=== PATIENT | female | born 1950 | race Caucasian/White ===

== ENCOUNTER → 2024-01-13 12:56 | Outpatient (REF) | payer MEDICARE, OTHER, SELFPAY | LOC: HWRAD 12:56 | PROVIDERS: ATTENDING PHYSICIAN Podiatrist Foot & Ankle Surgery; FAMILY PHYSICIAN Internal Medicine | DX: M19.071 Primary osteoarthritis, right ankle and foot (principal) | CPT/HCPCS: 73610 ==

== ENCOUNTER → 2024-08-01 15:49 | Outpatient (REF) | payer MEDICARE, BC, SELFPAY | LOC: RAD 15:49 | PROVIDERS: ATTENDING PHYSICIAN Specialist; FAMILY PHYSICIAN Internal Medicine | DX: N20.0 Calculus of kidney (principal) | CPT/HCPCS: 76775 ==

== ENCOUNTER 2024-09-26 21:12 | Emergency (ER) | payer MEDICARE, BC, SELFPAY ==
[2024-09-26 21:14] VITALS: BP 137/79
[2024-09-26 21:45] LABS: % Basophils 0.4 % (0-2); % Immature Granulocytes 0.2 % (0-0.5); % Lymphocytes 28.2 % (20.5-51.1); % Monocytes 8.5 % (1.7-9.3); % Neutrophils 59.7 % (42.2-75.2); Absolute Eosinophils 0.2 10^3/uL (0-0.7); Absolute Lymphocytes 1.4 10^3/uL (1.2-3.4); Absolute Monocytes 0.4 10^3/uL (0.1-0.6); Hematocrit 35.9 % (37.0-47.0); Hemoglobin 12.4 g/dL (12.0-16.0); Mean Corp Hgb Conc. 34.5 g/dL (33.0-37.0); Mean Corpuscular Hgb 32.9 pg (27.0-31.0); Mean Corpuscular Volume 95.2 fL (81.0-99.0); Mean Platelet Volume 8.5 fL (7.4-10.4); Nucleated Red Blood Cells % 0 %; Platelet Count 225 10^3/uL (130-400); Red Blood Cell Count 3.77 10^6/uL (4.20-5.40); Red Cell Dist. Width 12.5 % (11.5-14.5); Urine Albumin Negative (Neg - Trace); Urine Bilirubin Negative (Negative); Urine Character Clear (Clear); Urine Color Yellow; Urine Glucose Negative (Negative); Urine Ketone Negative (Negative); Urine Leukocyte Trace (Negative); Urine Nitrite Negative (Negative); Urine Occult Blood Negative (Negative); Urine Urobilinogen 1+ (Neg - 1+)
[2024-09-26 21:50] LABS: Urine Bacteria Many (Negative); Urine Red Blood Cell 0-2 /HPF (0-2)
[2024-09-26 21:51] LABS: Urine Amorphous Seen
[2024-09-26 22:03] LABS: Blood Urea Nitrogen 31 mg/dl (7-17); Carbon Dioxide 33 mmol/L (22-30); Chloride 96 mmol/L (98-107); Glucose 121 mg/dl (70-99); Sodium 137 mmol/L (135-145); eGFR > 60.00
[2024-09-26 23:00] VITALS: BMI 20.4
--- NOTE | 2024-09-26 23:44 | ED.GENMED ---
History of Present Illness
<Graciela Hsu MAP MOUNTER - Last Filed: 09/26/24 23:48>
General
Chief Complaint: Flank Pain
Source: patient
Exam Limitations: none
Time Seen by Provider: 09/26/24 22:29
Nursing documentation reviewed up to this point in time: agreed with
History of Present Illness
History of Present Illness:
Patient to eD wtih complaint of left flank pain. Symptoms started yesterday and continue to worsen. History of kidney stones, uncertain that this is cause of her pain tonight. Denies fever/chills, n/v/d. Pain becomes wworse with movement.
BRought to ED by spouse for eval.
Past History
<Graciela Hsu MAP MOUNTER - Last Filed: 09/26/24 23:48>
Past History
ED Past Medical History: None
Review of Systems
<Graciela Hsu MAP MOUNTER - Last Filed: 09/26/24 23:48>
Review of Systems
Allergies reviewed?: Yes
All Other Systems: ROS reviewed and negative except as documented in HPI and ROS
Constitutional: Reports no symptoms
EENT: Reports no symptoms
Respiratory: Reports no symptoms
Cardiac: Reports no symptoms
ABD/GI: Reports no symptoms
: Reports flank pain
Musculoskeletal: Reports no symptoms
Skin: Reports no symptoms
Neurological: Reports no symptoms
Psychiatric: Reports no symptoms
Phy Exam
<Vic Douglas DO - Last Filed: 09/27/24 02:16>
Physical Exam
Physical Exam:
Physical Exam
General: no apparent distress, not acutely ill
Neck: No jaundice
Heart: s1/s2 regular rate and rhythm, no murmur. equal radial pulses.
Lungs: no acute respiratory distress. clear bilaterally
Abdomen: Mild tenderness in the left flank
Neuro: alert and oriented. no focal neurological deficits
Skin: no rash
Psychiatric: well kept. interactive and cooperative
Extremities: no edema.
Course
<Graciela Hsu MAP MOUNTER - Last Filed: 09/26/24 23:48>
Orders/Labs/Results
Orders:
Orders
09/26/24 21:35
Basic Metabolic Panel Urgent
Complete Blood Count/With Diff Urgent
Urinalysis Reflex To Culture Urgent
Date Specimen was Collected: 09/26/24
Time Specimen was Collected: 21:21
Urine Microscopic Reflex Cult Urgent
Urine Culture Urgent
VANDANA Source: U
Specimen Description:
Date Specimen was Collected: 09/26/24
Time Specimen was Collected: 21:21
09/26/24 22:41
CT Abd/pel Without Iv Or Oral Urgent
Comment:
Reason For Exam: left flank pain
09/27/24 00:20
Ibuprofen [Motrin] 600 mg PO NOW STA
Abnormal Lab Results
09/26/24
21:35
RBC 3.77 L 10^6/uL
(4.20-5.40)
Hct 35.9 L %
(37.0-47.0)
MCH 32.9 H pg
(27.0-31.0)
Chloride 96 L mmol/L
(98-107)
Carbon Dioxide 33 H mmol/L
(22-30)
BUN 31 H mg/dl
(7-17)
Glucose 121 H mg/dl
(70-99)
Leukocyte Esterase Rfl Trace A
(Negative)
Urine Bacteria (Reflex) Many A
(Negative)
09/26/24 21:35
09/26/24 21:35
Vital Signs
Initial and Last Documented VS:
Initial Vital Signs
Temp Pulse Resp BP Pulse Ox
97.6 F 85 18 137/79 97
09/26/24 21:14 09/26/24 21:14 09/26/24 21:14 09/26/24 21:14 09/26/24 21:14
Last Documented Vital Signs
Temp Pulse Resp BP Pulse Ox
97.6 F 73 18 127/68 98
09/26/24 21:14 09/27/24 00:08 09/27/24 00:08 09/27/24 00:08 09/27/24 00:08
<Vic Douglas, DO - Last Filed: 09/27/24 02:16>
Orders/Labs/Results
Orders:
Orders
09/26/24 21:35
Basic Metabolic Panel Urgent
Complete Blood Count/With Diff Urgent
Urinalysis Reflex To Culture Urgent
Date Specimen was Collected: 09/26/24
Time Specimen was Collected: 21:21
Urine Microscopic Reflex Cult Urgent
Urine Culture Urgent
VANDANA Source: U
Specimen Description:
Date Specimen was Collected: 09/26/24
Time Specimen was Collected: 21:21
09/26/24 22:41
CT Abd/pel Without Iv Or Oral Urgent
Comment:
Reason For Exam: left flank pain
09/27/24 00:20
Ibuprofen [Motrin] 600 mg PO NOW STA
Abnormal Lab Results
09/26/24
21:35
RBC 3.77 L 10^6/uL
(4.20-5.40)
Hct 35.9 L %
(37.0-47.0)
MCH 32.9 H pg
(27.0-31.0)
Chloride 96 L mmol/L
(98-107)
Carbon Dioxide 33 H mmol/L
(22-30)
BUN 31 H mg/dl
(7-17)
Glucose 121 H mg/dl
(70-99)
Leukocyte Esterase Rfl Trace A
(Negative)
Urine Bacteria (Reflex) Many A
(Negative)
09/26/24 21:35
09/26/24 21:35
Vital Signs
Initial and Last Documented VS:
Initial Vital Signs
Temp Pulse Resp BP Pulse Ox
97.6 F 85 18 137/79 97
09/26/24 21:14 09/26/24 21:14 09/26/24 21:14 09/26/24 21:14 09/26/24 21:14
Last Documented Vital Signs
Temp Pulse Resp BP Pulse Ox
97.6 F 73 18 127/68 98
09/26/24 21:14 09/27/24 00:08 09/27/24 00:08 09/27/24 00:08 09/27/24 00:08
<Vic Douglas DO - Last Filed: 09/27/24 02:16>
*Critical Care Note
Total Time (30-74mins, 75-104mins- exclusive of procedures): Not Applicable
ED Attending Note
<Graciela Hsu NP - Last Filed: 09/26/24 23:48>
-
Portions of this chart may have been created with voice recognition software.� Occasional wrong word or��sound alike� substitutions may have occurred due to the inherent limitations of voice recognition software.
<Vic Douglas DO - Last Filed: 09/27/24 02:16>
ED Attending Note
Patient seen and examined by attending physician: Yes
I performed the substantive portion of visit, reviewed & personally made and approve the management plan that is documented in note by myself or MEAGHAN.: Yes
ED Attending Note:
Seen with MAP MOUNTER examined independently left flank pain for a week, history of stones, worse with positions, sharp, CT noted,
Discharge Plan
Departure
Patient Disposition: Home (Routine Discharge)
Date of Disposition: 09/27/24
Time of Disposition: 00:17
Patient with high blood pressure during this ER visit?: No
Condition: Good
Covid-19: Not Applicable
Discharge Problem:
Flank pain
Instructions: Flank Pain (DC), Musculoskeletal Pain
Prescriptions:
New
ibuprofen 400 mg tablet
400 mg PO Q8H PRN (Reason: Pain) Qty: 20 0RF
Referrals:
Tran Sears MD [Family Provider] - Tomorrow
Interventions
Interventions:
*Risk Screen - Suicide Last Done: 09/27/24 00:37
*General Assessment Last Done: 09/26/24 21:14
*Neglect/Abuse Screening Last Done: 09/26/24 21:14
ED- Fall Risk Assessment Last Done: 09/27/24 00:10
*ED COVID-19 Vaccine History Last Done: 09/26/24 21:14
*Nursing Disposition Last Done: 09/27/24 00:37
QW-[id number]-Wyshhbgtfd Assessment Last Done: 09/27/24 00:10
ED-Female Genitourinary Assessment Last Done: 09/27/24 00:11
Discharge Date and Time
Discharge Date/Time: 09/27/24 00:40
Print Language: DJIBOUTIAN
Musculoskeletal Injury Exam
<Graciela Hsu NP - Last Filed: 09/26/24 23:48>
Musculoskeletal Injury Exam
Left flank:
Pain with Movement?: Moderate
Tender to palpation?: None
Soft tissue swelling?: None
External deformity and angulation?: None
Joint effusion?: None
Contusion?: None
Crepitus with movement?: No
Joint instability?: No
Malalignment/deformity?: No
Range of motion: Full
Distal skin color and temperature: normal-warm & good color
Capillary Refill: normal
Normal distal neurovascular exam?: Yes
[2024-09-27 00:08] VITALS: BP 127/68
[2024-09-27] MEDS: MOTRIN 600 MG PO (00:29)
== END 2024-09-27 00:40 | disposition home or self-care (01) ==
LOC: EMR 21:12
PROVIDERS: EMERGENCY PHYSICIAN Emergency Medicine; FAMILY PHYSICIAN Internal Medicine
DX: R10.9 Unspecified abdominal pain (principal); Z87.442 Personal history of urinary calculi
CPT/HCPCS: 99284; 74176; 80048; 81003; 81015; 85025; 87086

== ENCOUNTER → 2024-11-01 15:26 | Outpatient (REF) | payer MEDICARE, BC, SELFPAY | LOC: RCS 15:26 | PROVIDERS: ATTENDING PHYSICIAN Internal Medicine Cardiovascular Disease; FAMILY PHYSICIAN Internal Medicine | DX: I35.1 Nonrheumatic aortic (valve) insufficiency (principal) | CPT/HCPCS: 93306 ==

== ENCOUNTER → 2024-12-04 13:04 | Outpatient (REF) | payer MEDICARE, BC, SELFPAY | LOC: RAD 13:04 | PROVIDERS: ATTENDING PHYSICIAN Internal Medicine Cardiovascular Disease; FAMILY PHYSICIAN Internal Medicine | DX: R09.89 Other specified symptoms and signs involving the circulatory and respiratory systems (principal) | CPT/HCPCS: 93880 ==

== ENCOUNTER → 2025-02-20 12:22 | Outpatient (REF) | payer MEDICARE, BC, SELFPAY | LOC: RAD 12:22 | PROVIDERS: ATTENDING PHYSICIAN Internal Medicine Rheumatology; FAMILY PHYSICIAN Internal Medicine | DX: M81.0 Age-related osteoporosis without current pathological fracture (principal) | CPT/HCPCS: 77080 ==